=== PATIENT | male | born 1970 | race Caucasian/White ===

== ENCOUNTER → 2021-05-08 15:32 | Outpatient (CLI) | payer OTHER, SELFPAY ==
--- NOTE | 2021-05-08 | DI.RAD.S_ITS ---
PROCEDURE: XR T AND L SPINE 2 TO 3 VIEWS INDICATIONS: Wedge compression fracture of T11-T12 vertebra, subsequent e TECHNIQUE: 2 views acquired of the thoracolumbar spine. COMPARISON: None. FINDINGS: Bones: No acute fractures or dislocations. Mild chronic anterior wedging of T12. Minimal chronic anterior wedging of T8. Visualized inferior ribs appear intact. No suspicious bony lesions. Soft tissues: No suspicious soft tissue calcifications. IMPRESSION: Chronic anterior wedging of T8 and T12. No evidence acute bony abnormality of the thoracolumbar spine. If clinical suspicion and/or symptoms persist, further assessment with repeat plain films, or advanced imaging (e.g., CT, MRI, or bone scan) may be helpful for further assessment. Dictated by: Dario Malloy M.D. on 05/09/2021 at 12:04 Approved by: Dario Malloy M.D. on 05/09/2021 at 12:08
== END ==
PROVIDERS: Referring Provider Nurse Practitioner Adult Health; Visit Provider Nurse Practitioner Adult Health
DX: S22.080D Wedge compression fracture of T11-T12 vertebra, subsequent encounter for fracture with routine healing (principal)
CPT/HCPCS: 72082

== ENCOUNTER → 2021-06-12 13:29 | Outpatient (CLI) | payer OTHER, SELFPAY ==
--- NOTE | 2021-06-12 13:37 | DI.RAD.S_ITS ---
PROCEDURE: XR T AND L SPINE 2 TO 3 VIEWS INDICATIONS: Xray thoracolumbar flexion and extension TECHNIQUE: 2 views acquired of the thoracolumbar spine. COMPARISON: None. FINDINGS: Bones: No acute fractures or dislocations. Visualized inferior ribs appear intact. No suspicious bony lesions. Lumbar spine neurostimulator. Mild L1-L2, L2-L3, L3-L4, L4-L5 and L5-S1 degenerative disc disease. There is limited range of motion in the flexed and extended positions. No abnormal vertebral body motion identified in the flexed or extended positions. Soft tissues: No suspicious soft tissue calcifications. IMPRESSION: Multilevel degenerative disc disease. Limited flexion extension range of motion. No abnormal vertebral body translation in the flexed or extended positions. Dictated by: Lucrecia Calles MD, PhD on 06/12/2021 at 15:05 Approved by: Lucrecia Calles MD, PhD on 06/12/2021 at 15:06
== END ==
PROVIDERS: Referring Provider Physician Assistant Medical; Visit Provider Physician Assistant Medical
DX: S22.080D Wedge compression fracture of T11-T12 vertebra, subsequent encounter for fracture with routine healing (principal); M51.36 Other intervertebral disc degeneration, lumbar region; M51.37 Other intervertebral disc degeneration, lumbosacral region; Z96.82 Presence of neurostimulator
CPT/HCPCS: 72082

== ENCOUNTER 2024-06-20 01:40 | Emergency (ER) | payer OTHER, SELFPAY ==
[2024-06-20] VITALS (14 sets, daily range): BP systolic 118–148; BP diastolic 78–99; PULSE 73–100; RESP 16–20; TEMP 36.4; O2SAT 91–96; BMI 35.5
--- NOTE | 2024-06-20 02:33 | ED.SKABFB ---
HPI - Skin/Abscess/Foreign Bdy General Chief complaint: Skin/Abscess/Foreign Body Stated complaint: Rash all over Time Seen by Provider: 06/20/24 01:55 Source: patient Mode of arrival: Ambulatory Limitations: no limitations History of Present Illness HPI narrative: 53-year-old male complains of painful itchy skin rash yesterday. Has been on lamotrigine for anger management, had dosage increase from 50 mg twice daily to 100 mg 2 months ago. Was told that if he got any skin rashes to stop the medications and go to the emergency department as soon as possible. No oral lesions. No trouble breathing. No neck swelling or lip swelling or tongue swelling symptoms. No blistering of the skin. He has not tried any medications thus far. Related Data Previous Rx's Medication Instructions Recorded diphenhydramine HCl 25 mg capsule 50 mg (2 x 25 mg) PO QID #40 caps 06/20/24 (Benadryl) prednisone 20 mg tablet 40 mg (2 x 20 mg) PO DAILY 5 days 06/20/24 #10 tabs Patient History tobacco type: smokeless tobacco Exam Narrative Exam Narrative: GENERAL: Well-developed patient, in mild distress. HEAD: Atraumatic. Normocephalic. EYES: Pupils equal round and reactive. Extraocular motions intact. No scleral icterus. No injection or drainage. ENT: Nose without bleeding, purulent drainage. Throat without erythema, tonsillar hypertrophy or exudate. Airway patent. NECK: Trachea midline. Non tender CARDIOVASCULAR: Regular rate and rhythm without murmurs, gallops, or rubs. RESPIRATORY: Clear to auscultation. Breath sounds equal bilaterally. No wheezes, rales, or rhonchi. GASTROINTESTINAL: Abdomen soft, non-tender, nondistended. EXTREMITIES: No edema or joint tenderness. BACK: Nontender without deformity or crepitance. No flank tenderness. NEURO: AOx3. Motor functions grossly nonfocal SKIN: Maculopapular rash in large patches anterior and posterior trunk, upper extremities, lower extremities, non confluent. No petechiae. No purpura. No bullae. Not particularly urticarial and plaque nature. No obvious swelling to face or eyelids or lips or tongue. Initial Vital Signs Initial Vital Signs: Vital Signs Temperature 97.5 F L 06/20/24 01:51 Pulse Rate 100 H 06/20/24 01:51 Respiratory Rate 20 04/27/25 01:51 Blood Pressure 144/99 H 06/20/24 01:51 Pulse Oximetry 96 06/20/24 01:51 Oxygen Delivery Method Room Air 06/20/24 01:51 Course Orders Ordered: Discontinued Medications Diphenhydramine HCl (Diphenhydramine 50 Mg/Ml Vial) 50 mg IV NOW ONE Stop: 06/20/24 02:37 Last Admin: 06/20/24 02:57 Dose: 50 mg Documented By: SHAHAB Methylprednisolone (Methylprednisolone 125 Mg/2 Ml Vial) 125 mg IV NOW ONE Stop: 06/20/24 02:37 Last Admin: 06/20/24 02:57 Dose: 125 mg Documented By: SHAHAB Vital Signs Vital signs: Vital Signs - 8 hr 06/20/24 01:51 06/20/24 02:30 06/20/24 02:50 Temperature 97.5 F L Pulse Rate 100 H 92 H 89 Respiratory Rate 20 Blood Pressure 144/99 H Pulse Oximetry 96 93 93 Oxygen Delivery Method Room Air 06/20/24 02:50 06/20/24 03:00 06/20/24 03:01 Temperature Pulse Rate 92 H Respiratory Rate Blood Pressure 148/84 H 127/88 Pulse Oximetry 93 Oxygen Delivery Method 06/20/24 03:01 06/20/24 03:30 06/20/24 03:30 Temperature Pulse Rate 92 H 87 Respiratory Rate 18 Blood Pressure 123/88 Pulse Oximetry 93 92 Oxygen Delivery Method 06/20/24 04:00 06/20/24 04:00 06/20/24 04:30 Temperature Pulse Rate 89 Respiratory Rate Blood Pressure 129/88 130/89 Pulse Oximetry 93 Oxygen Delivery Method 06/20/24 04:30 06/20/24 05:00 06/20/24 05:00 Temperature Pulse Rate 73 77 Respiratory Rate 16 Blood Pressure 129/86 Pulse Oximetry 92 91 Oxygen Delivery Method Room Air 06/20/24 05:30 06/20/24 05:30 06/20/24 06:00 Temperature Pulse Rate 80 Respiratory Rate Blood Pressure 119/82 118/78 Pulse Oximetry 92 Oxygen Delivery Method 06/20/24 06:00 Temperature Pulse Rate 77 Respiratory Rate 18 Blood Pressure Pulse Oximetry 92 Oxygen Delivery Method MDM - Skin/Abscess/Foreign Bdy Lab Data 06/20/24 02:52 06/20/24 02:52 Labs: Lab Results 06/20/24 Range/Units 02:52 WBC 11.3 H (4.5-11.0) X10^3/uL RBC 5.04 (4.5-5.9) X10^6/uL Hgb 15.3 (13.5-17.5) g/dL Hct 45.4 (41-53) % MCV 90.2 (80-100) fL MCH 30.4 (26-34) PG MCHC 33.8 (30-36) % RDW 13.9 (11.6-14.8) % Plt Count 399 (150-400) X10^3/uL Neut % (Auto) 63.2 (50-75) % Lymph % (Auto) 26.7 (25-40) % [place] % (Auto) 7.8 (3-14) % Eos % (Auto) 1.7 L (2-4) % Baso % (Auto) 0.6 (0-2) % Neut # (Auto) 7200 H (2554-4907) /uL Lymph # (Auto) 3000 (6603-3582) /uL [place] # (Auto) 900 (0-900) /uL Eos # (Auto) 200 (0-450) /uL Baso # (Auto) 100 (0-100) /uL PT 11.6 (9.4-12.5) SECONDS INR 1.0 (0.9-1.3) Fibrinogen 420 (238-498) mg/dL Sodium 140 (137-145) mmol/L Potassium 3.7 (3.4-5.1) mmol/L Chloride 103 (98-107) mmol/L Carbon Dioxide 24 (22-32) mmol/L BUN 24 H (9-20) mg/dL Creatinine 0.94 (0.66-1.25) mg/dL Estimated GFR > 60 (>60) mL/min BUN/Creatinine Ratio 25.5 H (6-22) Glucose 129 H (70-99) mg/dL Calcium 10.0 (8.4-10.2) mg/dL Total Bilirubin 0.4 (0.2-1.3) mg/dL AST 30 (17-59) IU/L ALT 29 (<50) IU/L Alkaline Phosphatase 58 (38-126) U/L C-Reactive Protein < 0.5 (<1.0) mg/dL Total Protein 7.7 (6.3-8.2) g/dL Albumin 4.9 (3.5-5.0) g/dL Globulin 2.8 (1.7-4.1) g/dL Albumin/Globulin Ratio 1.8 (1.0-2.8) Urine Color Yellow Urine Appearance Clear Urine pH 6.0 (4.5-8.0) Ur Specific [place] >=1.030 H (1.000-1.035) Urine Protein Trace H (Negative) Urine Glucose (UA) Negative (Negative) g/dL Urine Ketones Negative (NEGATIVE) Urine Occult Blood 1+ H (Negative) Urine Nitrate Negative (Negative) Urine Bilirubin Negative (NEGATIVE) Urine Urobilinogen 0.2 (0.2) E.U./dL Ur Leukocyte Esterase Negative (NEGATIVE) Urine RBC 1-5/hpf (0-5/HPF) Urine WBC 0-1/hpf (0-5/HPF) Ur Squamous Epith Cells 0-1 /hpf (0-5/HPF) Urine Bacteria None seen (None) Urine Mucus 3+ H (Negative) Ur Culture Indicated? Cult not indicated Vol Urine Centrifuged 10ml (spun) MDM Narrative Medical decision making narrative: 53-year-old male with history of anger management issues, had been on lamotrigine titrated up for many months, 2 months ago was increased in dosage up to 100 mg by mouth twice daily. Now with itchy painful rash since yesterday, was told that he had had a itchy painful rash or unexplained rash needs to be seen right away as it could be dangerous if it is due to lamotrigine. No angioedema like symptoms. No bull eye. Afebrile, normotensive. No mucosal lesions obvious on examination. No conjunctival injection. Consider allergic reaction, possibly due to lamotrigine, consider DRESS syndrome, we will send screening labs. Consider dermatology consultation. Hepatic function, renal function, lytes normal. CRP not elevated. Photo sent, case discussed with [facility] Dr. Clement, who had very limited utility in her response, stating that her role was only to determine if there Andre John syndrome, which seemed unlikely, otherwise had no recommendations. Meanwhile, rash seemed to be having improvement, less intense pain, less intense itching, faded in appearance in some patches. We will discharge patient on oral prednisone and oral Benadryl regimen for the next few days. Patient advised to stopped the lamotrigine. Follow up with his mental health providers advised as well. Return precautions discussed. Discharged home. Discharge Plan Departure Patient Disposition: Home Clinical Impression: Skin rash Activity Restrictions/Additional Instructions: Skin rash that is painful and itchy. Possibly related to lamotrigine. Stop using the lamotrigine medication. IV steroid and IV antihistamine given. Take further steroids and antihistamines oral course. Recheck with your regular provider and your mental health provider this week. Return earlier to this/nearest emergency department for any change worsening symptoms or any concerns prior. Prescriptions: New prednisone 20 mg tablet 40 mg PO DAILY 5 Days Qty: 10 0RF diphenhydramine HCl [Benadryl] 25 mg capsule 50 mg PO QID Qty: 40 0RF Referrals: Miscellaneous,Doctor, [Primary Care Provider] - Stand Alone Forms: Patient Portal/API/Survey
[2024-06-20] MEDS: diphenhydrAMINE 50 MG/ML VIAL IV (02:57)
[2024-06-20] MEDS: methylPREDNISolone 125 MG/2 ML VIAL IV (02:57)
[2024-06-20 03:06] LABS: Add Manual Diff / Slide Review NO; Basophils Absolute Auto 100 /uL (0-100); Basophils Percent Auto 0.6 % (0-2); Eosinophils Absolute Auto 200 /uL (0-450); Eosinophils Percent Auto 1.7 % (2-4); Hematocrit 45.4 % (41-53); Hemoglobin 15.3 g/dL (13.5-17.5); Lymphocytes Absolute Auto 3000 /uL (1100-4500); Lymphocytes Percent Auto 26.7 % (25-40); Mean Corpuscular HGB Conc 33.8 % (30-36); Mean Corpuscular Hemoglobin 30.4 PG (26-34); Mean Corpuscular Volume 90.2 fL (80-100); Monocytes Absolute Auto 900 /uL (0-900); Monocytes Percent Auto 7.8 % (3-14); Neutrophils Absolute Auto 7200 /uL (1500-7000); Neutrophils Percent Auto 63.2 % (50-75); Platelet Count 399 X10^3/uL (150-400); Red Blood Cell Count 5.04 X10^6/uL (4.5-5.9); Red Cell Distribution Width 13.9 % (11.6-14.8); White Blood Cell Count 11.3 X10^3/uL (4.5-11.0)
[2024-06-20 03:13] LABS: Prothrombin Time 11.6 SECONDS (9.4-12.5)
[2024-06-20 03:27] LABS: Fibrinogen 420 mg/dL (238-498)
[2024-06-20 03:31] LABS: Alanine Aminotransferase 29 IU/L (<50); Albumin 4.9 g/dL (3.5-5.0); Albumin Globulin Ratio 1.8 (1.0-2.8); Alkaline Phosphatase 58 U/L (38-126); Aspartate Aminotransferase 30 IU/L (17-59); BUN Creatinine Ratio 25.5 (6-22); Bilirubin Total 0.4 mg/dL (0.2-1.3); Blood Urea Nitrogen 24 mg/dL (9-20); Carbon Dioxide 24 mmol/L (22-32); Chloride 103 mmol/L (98-107); Estimated Glomerular Filt Rate > 60 mL/min (>60); Globulin 2.8 g/dL (1.7-4.1); Glucose 129 mg/dL (70-99); HEMOLYSIS < 15 (0-50); Potassium 3.7 mmol/L (3.4-5.1); Sodium 140 mmol/L (137-145); Total Protein 7.7 g/dL (6.3-8.2)
[2024-06-20 03:36] LABS: Appearance Urine UA CLEAR; Bilirubin Urine UA NEGATIVE (NEGATIVE); Color Urine UA YELLOW; Glucose Urine UA NEGATIVE (Negative); Ketones Urine UA NEGATIVE (NEGATIVE); Leukocyte Esterase Urine UA NEGATIVE (NEGATIVE); Nitrite Urine UA NEGATIVE (Negative); Occult Blood Urine UA 1+ (Negative); Protein Urine UA TRACE (Negative); Specific Gravity Urine UA >=1.030 (1.000-1.035); Urobilinogen Urine UA 0.2 E.U./dL (0.2)
[2024-06-20 03:37] LABS: C-Reactive Protein Quant < 0.5 mg/dL (<1.0)
[2024-06-20 03:44] LABS: Urine Volume 10mL (spun)
[2024-06-20 03:45] LABS: RBC Urine 1-5/HPF (0-5/HPF); WBC Urine 0-1/HPF (0-5/HPF)
[2024-06-20 03:46] LABS: Bacteria Urine None Seen; Mucus Urine 3+ (Negative); Squamous Epithelial Cell Urine 0-1 /HPF (0-5/HPF)
[2024-06-20 03:47] LABS: Culture Indicated Urine Cult Not Indicated
--- NOTE | 2024-06-20 07:30 | PC.NURSE ---
Pt appears to be resting comfortably in bed. Equal chest rise and fall.
== END 2024-06-20 07:51 | disposition home or self-care (01) ==
PROVIDERS: Emergency Provider Emergency Medicine
DX: R21 Rash and other nonspecific skin eruption (principal)
CPT/HCPCS: 36415; 80053; 81001; 85025; 85384; 85610; 86140; 96374; 96375; 99284; J1200; J2919

== ENCOUNTER 2024-07-28 12:29 | Emergency (ER) | payer OTHER, SELFPAY ==
--- NOTE | 2024-07-28 12:32 | ED_ITS ---
HPI - Chest Pain General Chief Complaint: Chest Pain Stated Complaint: chest pain vertigo weakness sent by PCP Time Seen by Provider: 07/28/24 12:32 History of Present Illness HPI narrative: 53-year-old male with a past medical history of vertigo comes into the ED from home for evaluation multiple complaints, he states that several hours ago he started having vertiginous like symptoms, states that it was getting worse with motion turning his head, states that he also started developing a ?hollow feeling to his chest states that it is not an actual chest pain just feels like ?it is hollow. He states that he was on lamotrigine for anger management issues previously but had an allergic reaction to this and therefore is not taking it anymore. He denies any visual disturbances shortness breath fever chills abdominal pain or any other GI/ symptoms time. He states that moving turning his head does make his symptoms worse, has a associated nausea vomiting associated with the symptoms. Denies any falls no head strike no LOC not on any blood thinners. Related Data Previous Rx's ?Medication ?Instructions ?Recorded diphenhydramine HCl 25 mg capsule 50 mg (2 x 25 mg) PO QID #40 caps 06/20/24 (Benadryl) meclizine 25 mg chewable tablet 25 mg PO BID PRN dizzi ness 1 week 07/28/24 (Antivert) #14 tabs ondansetron 4 mg disintegrating 4 mg PO Q8H PRN nausea and 07/28/24 tablet vomiting 1 week #21 tabs Allergies Allergy/AdvReac Type Severity Reaction Status Date / Time gabapentin Allergy Verified 07/28/24 12:44 Penicillins Allergy Verified 07/28/24 12:44 Review of Systems Review of Systems Narrative: General: Denies fever, chills, weight loss HEENT: Denies headache, eye drainage, eye irritation, head trauma, sore throat, voice change Cardiovascular: Positive chest pain, denies palpitations, tachycardia Respiratory: Denies any shortness of breath, cough, wheeze, stridor GI/: Denies any abdominal pain, nausea, vomiting, diarrhea, bright red blood per rectum, melanotic stools, urinary frequency, urinary retention, dysuria, hematuria MSK: Denies any joint pain, muscle pains, swelling Skin: Denies any rashes, lesions, discoloration Neuro: Positive lightheadedness, dizziness Denies any headache, fainting, weakness Psych: Denies SI/HI Patient History Social History Smoking Status: Former smoker tobacco type: smokeless tobacco Exam Narrative Exam Narrative: General: Cooperative, well-developed, not in acute distress HEENT: Normocephalic, atraumatic, PERRLA, normal sclera, eyelids normal Neck: Active full range of motion, atraumatic Chest: Normal to inspection, negative crepitus, no overlying erythema ecchymosis Respiratory: Normal respiratory effort, not in acute respiratory distress, clear to auscultation bilaterally negative cough, wheeze, tachypnea, rhonchi, rales Cardiology: Regular rate rhythm negative gallop, murmur, rubs GI/: No tenderness to palpation, soft, non rigid, normal to inspection, exam deferred MSK: Full active range of motion in all 4 extremities, atraumatic, no tenderness to palpation of any bony prominences Skin: No rashes or lesions noted Neuro: NIH of 0, no focal deficits Alert awake oriented x3, moves all 4 extremities spontaneously, cranial nerves intact, able to answer all questions appropriately follows commands appropriately Psych: Cooperative, negative suicidal or homicidal ideations Initial Vital Signs Initial Vital Signs: Vital Signs Temperature 98.1 F 07/28/24 12:43 Pulse Rate 77 07/28/24 12:43 Respiratory Rate 18 07/28/24 12:43 Blood Pressure 143/98 H 07/28/24 12:43 Pulse Oximetry 96 07/28/24 12:43 Oxygen Delivery Method Room Air 07/28/24 12:43 Course Orders Ordered: ED Orders 07/28/24 12:32 XR chest 1V Stat EKG-12 Lead Stat 07/28/24 12:38 CT angio head and neck Stat CT head/brain wo con Stat 07/28/24 12:50 Complete Blood Count AUTO DIFF Stat Comprehensive Metabolic Panel Stat Lipase Stat MAG [Magnesium] Stat NT-proBNP (BNP-Adult 18+) Stat PTT Partial Thromboplastin Aris Stat Prothrombin Time INR Stat Troponin & CK Cardiac Panel Stat Discontinued Medications Diphenhydramine HCl (Diphenhydramine 50 Mg/Ml Vial) 25 mg IV NOW ONE Stop: 07/28/24 12:38 Last Admin: 07/28/24 13:04 Dose: 25 mg Documented By: Sodium Chloride (Normal Saline 0.9%) 1,000 mls @ 1,000 mls/hr IV BOLUS ONE Stop: 07/28/24 13:36 Last Admin: 07/28/24 13:05 Dose: 1,000 mls/hr Documented By: Metoclopramide HCl (Metoclopramide 10 Mg/2 Ml Inj) 10 mg IV NOW ONE Stop: 07/28/24 12:38 Last Admin: 07/28/24 13:04 Dose: 10 mg Documented By: Ondansetron HCl (Ondansetron 4 Mg/2 Ml Inj) 4 mg IV NOW ONE Stop: 07/28/24 12:38 Last Admin: 07/28/24 13:04 Dose: 4 mg Documented By: Vital Signs Vital signs: Vital Signs - 8 hr 07/28/24 12:43 Temperature 98.1 F Pulse Rate 77 Respiratory Rate 18 Blood Pressure 143/98 H Pulse Oximetry 96 Oxygen Delivery Method Room Air MDM - Chest Pain Differential Diagnosis Differential diagnosis: Likely atypical chest pain, st elevation myocardial infarction, costochondritis, chest pain and other (BPPV, CVA, electrolyte abnormality) Lab Data 07/28/24 12:50 07/28/24 12:50 Labs: Lab Results 07/28/24 Range/Units 12:50 WBC 15.9 H (4.5-11.0) X10^3/uL RBC 5.06 (4.5-5.9) X10^6/uL Hgb 15.5 (13.5-17.5) g/dL Hct 46.2 (41-53) % MCV 91.2 (80-100) fL MCH 30.7 (26-34) PG MCHC 33.6 (30-36) % RDW 14.3 (11.6-14.8) % Plt Count 390 (150-400) X10^3/uL Neut % (Auto) 90.4 H (50-75) % Lymph % (Auto) 6.1 L (25-40) % Moca % (Auto) 3.1 (3-14) % Eos % (Auto) 0.2 L (2-4) % Baso % (Auto) 0.2 (0-2) % Neut # (Auto) 30877 H (1474-4555) /uL Lymph # (Auto) 1000 L (6127-7025) /uL Moca # (Auto) 500 (0-900) /uL Eos # (Auto) 0 (0-450) /uL Baso # (Auto) 0 (0-100) /uL PT 11.9 (9.4-12.5) SECONDS INR 1.1 (0.9-1.3) APTT 36 (25.1-36.5) SECONDS Sodium 137 (137-145) mmol/L Potassium 4.1 (3.4-5.1) mmol/L Chloride 103 (98-107) mmol/L Carbon Dioxide 22 (22-32) mmol/L BUN 19 (9-20) mg/dL Creatinine 0.73 (0.66-1.25) mg/dL Estimated GFR > 60 (>60) mL/min BUN/Creatinine Ratio 26.0 H (6-22) Glucose 152 H (70-99) mg/dL Calcium 10.1 (8.4-10.2) mg/dL Magnesium 1.8 (1.6-2.3) mg/dL Total Bilirubin 0.6 (0.2-1.3) mg/dL AST 32 (17-59) IU/L ALT 37 (<50) IU/L Alkaline Phosphatase 62 (38-126) U/L Total Creatine Kinase 72 (55-170) U/L Troponin I < 0.012 (0.01-0.034) ng/mL NT-Pro-B Natriuret Pep < 20 (<125) pg/mL Total Protein 8.1 (6.3-8.2) g/dL Albumin 5.0 (3.5-5.0) g/dL Globulin 3.1 (1.7-4.1) g/dL Albumin/Globulin Ratio 1.6 (1.0-2.8) Lipase 107 (23-300) U/L Imaging Data Chest x-ray: Radiologist's Impression: [address] [address] XRay Report Signed Patient: Mario Car MR#: [id number] : 1970 Acct:[id number] Age/Sex: 53 / M Date of Service: 07/28/24 Loc: ED Accession Number: [id number] Procedure: XR chest 1V Ordering Provider: Baluyot,Familia D.O. PROCEDURE: XR CHEST 1V INDICATIONS: chest pain TECHNIQUE: One view of the chest was acquired. COMPARISON: [facility], CT, CT HEAD/BRAIN WO CON, 07/28/2024, 12:50. [facility], CT, CT ANGIO HEAD AND NECK, 07/28/2024, 12:50. FINDINGS: Surgical changes and devices: None. Lungs and pleura: An incomplete inspiratory result is noted, causing a crowded appearance to the lung markings. No focal infiltrates are seen. No pneumothorax or significant pleural effusions are seen. Mediastinum: Mediastinal contours appear normal. Heart size is normal. Bones and chest wall: No suspicious bony lesions. Age-appropriate bony degenerative changes are seen. Overlying soft tissues appear unremarkable. IMPRESSION: Low lung volumes, without an acute abnormality seen by plain film. CT scan - head: Radiologist's Impression: [place] [address] CT Scan Report Signed Patient: Mario Car MR#: [id number] : 1970 Acct:[id number] Age/Sex: 53 / M Date of Service: 07/28/24 Loc: ED Accession Number: [id number] Procedure: CT head/brain wo con Ordering Provider: Familia Hewitt D.O. PROCEDURE: CT HEAD/BRAIN WO CON INDICATIONS: dizzy TECHNIQUE: Noncontrast 4.5 mm thick angled axial sections acquired from the foramen magnum to the vertex, with coronal and sagittal reformats. For radiation dose reduction, the following was used: automated exposure control, adjustment of mA and/or kV according to patient size. COMPARISON: [facility], CT, CT HEAD WITHOUT CONTRAST, 04/03/2021, 12:18. [facility], CR, XR CHEST 1V, 07/28/2024, 12:46. [facility], CT, CT ANGIO HEAD AND NECK, 07/28/2024, 12:50. FINDINGS: Image quality: Diagnostic. CSF spaces: Basal cisterns are patent. No extra-axial fluid collections. Ventricles are normal in size and shape. Brain: No midline shift. No intracranial mass effect or hemorrhage. [place]- white matter interface is normal. Skull and face: Calvarium and visualized facial bones are intact, without suspicious lesions. Sinuses: Visualized sinuses and mastoids are clear. IMPRESSION: No imaging explanation is found for this patient's presenting symptoms. To the limits of this noncontrast study, no findings of intracranial masses or mass effect can be seen. CTA - brain/neck: Radiologist's Impression: [address] [address] [address] Scan Report Signed Patient: Mario Car MR#: [id number] : 1970 Acct:[id number] Age/Sex: 53 / M Date of Service: 07/28/24 Loc: ED Accession Number: [id number] Procedure: CT angio head and neck Ordering Provider: Familia Hewitt D.O. PROCEDURE: CT ANGIO HEAD AND NECK INDICATIONS: dizzy TECHNIQUE: After the administration of intravenous contrast, 1 mm thick sections acquired from the aortic arch through the [place] of Haq. 3-dimensional iokzkmc-rmbzwhtnk-lvdsvvjjso (MIP) and/or volume rendering reformats were acquired of the central intracranial vasculature and neck separately. For radiation dose reduction, the following was used: automated exposure control, adjustment of mA and/or kV according to patient size. COMPARISON: [facility], CT, CT HEAD WITHOUT CONTRAST, 04/03/2021, 12:18. [facility], CR, XR CHEST 1V, 07/28/2024, 12:46. [facility], CT, CT HEAD/BRAIN WO CON, 07/28/2024, 12:50. FINDINGS: Image quality: Limited by bolus timing, with venous contamination. There is streak artifact seen through the level of the shoulders. Cerebral CT Angiogram: Internal carotid arteries: No acute findings. Asymmetry can be seen of the A1 segments, with the right-side hypoplastic. The anterior cerebral artery system is otherwise within normal limits. No occlusion. No aneurysm. Anterior cerebral arteries: Unremarkable. No significant stenosis. No occlusion. No aneurysm. Middle cerebral arteries: Unremarkable. No significant stenosis. No occlusion. No aneurysm. Posterior cerebral arteries: Unremarkable. No significant stenosis. No occlusion. No aneurysm. Basilar artery: Unremarkable. No significant stenosis. No occlusion. No aneurysm. Vertebral arteries: Unremarkable as visualized. Dural venous sinuses: Unremarkable given phase of enhancement. Other: Arterial phase appearance of the brain parenchyma is unremarkable. Neck CT Angiogram: Internal carotid arteries: Unremarkable. No significant stenosis. No dissection or occlusion. Common carotid arteries: Unremarkable. No significant stenosis. No dissection or occlusion. External carotid arteries: Unremarkable. No occlusion. Vertebral arteries: Unremarkable. No significant stenosis. No dissection or occlusion. Aortic Arch and Mediastinum: Partially visualized aortic arch unremarkable without evidence of aneurysm. Origins of the great vessels unremarkable. Other: Arterial phase soft tissues of the neck and chest are unremarkable. Mild cervical spine degenerative change is seen. IMPRESSION: No imaging explanation is found for this patient's presenting symptoms. No significant intracranial arterial abnormality is seen. No significant abnormality is seen within the arteries of the neck. ECG Data Interpretation: EKG interpreted ED physician sinus 76 beats per minute QTC [address] changes no STEMI MDM Narrative Medical decision making narrative: 53-year-old male with a past medical history of vertigo comes into the emergency department for multiple complaints, states that he has been having vertigo earlier today, states it is worse than normal states it normally resolves after a few hours but this has persisted, symptoms are worse with turning or moving his head, no head strike no LOC. Also complains of a ?hollow feeling in his chest. He states that he was previously on lamotrigine for anger management issues but had an allergic reaction to this and therefore was taken off. He currently is not complaining of any shortness of breath visual disturbances or any other symptoms at this time. Does endorse nausea vomiting secondary to his symptoms. Patient had lab work imaging EKG performed here in the emergency department. EKG was nonischemic in nature. Chest x-ray without any acute cardiopulmonary abnormality, CT scan of the head without any acute findings, CTA angio head and neck without any acute findings, patient had resolution of his symptoms after administration of Reglan Benadryl here, patient was also given meclizine prior to discharge. Patient heart score of 2, patient was able to stand ambulate unassisted here in the emergency department no focal deficits, patient was instructed to follow up with the PCP, zinc skimmer and Cardiology in an outpatient setting, he verbalized understanding of this and agrees to being discharged home with outpatient follow up Discharge Plan Departure Patient Disposition: Home Clinical Impression: Chest pain, Vertigo Instructions: DI for Vertigo, DI for Chest Pain Activity Restrictions/Additional Instructions: Please follow up with ENT, PCP and Cardiology in outpatient setting Please read the discharge instructions sheet carefully and bring all papers to all doctor follow-up visits, as it may contain information that your doctor may want to see. Disease processes change and evolve, if your symptoms worsen or if you develop any new symptoms that are concerning to you please return for evaluation. Your evaluation today does not show any evidence of any life- threatening/serious illnesses requiring admission to the hospital or surgery. Please follow-up with your doctor for re-evaluation in approximately 1 day. Seek immediate medical attention for any worrisome symptoms. *If you do not have a primary care provider please contact the [facility] Resource line at [phone]. They will ask some questions about your medical history and help get you set up with a doctor in the community. Prescriptions: New meclizine [Antivert] 25 mg tablet,chewable 25 mg PO BID PRN (Reason: dizziness) 7 Days Qty: 14 0RF ondansetron 4 mg tablet,disintegrating 4 mg PO Q8H PRN (Reason: nausea and vomiting) 7 Days Qty: 21 0RF No Action diphenhydramine HCl [Benadryl] 25 mg capsule 50 mg PO QID Qty: 40 0RF Referrals: Nate Nicholson MD [Physician, Ear, Nose, Throat] Jeffery Singleton MD [Physician, Cardiology] Miscellaneous,MD Rosa [Primary Care Provider, Medical] Stand Alone Forms: Patient Portal/API
--- NOTE | 2024-07-28 12:32 | EKG_ITS ---
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
--- NOTE | 2024-07-28 12:38 | DI.CT.S_ITS ---
PROCEDURE: CT HEAD/BRAIN WO CON INDICATIONS: dizzy TECHNIQUE: Noncontrast 4.5 mm thick angled axial sections acquired from the foramen magnum to the vertex, with coronal and sagittal reformats. For radiation dose reduction, the following was used: automated exposure control, adjustment of mA and/or kV according to patient size. COMPARISON: [facility], CT, CT HEAD WITHOUT CONTRAST, 04/03/2021, 12:18. [facility], CR, XR CHEST 1V, 07/28/2024, 12:46. [facility], CT, CT ANGIO HEAD AND NECK, 07/28/2024, 12:50. FINDINGS: Image quality: Diagnostic. CSF spaces: Basal cisterns are patent. No extra-axial fluid collections. Ventricles are normal in size and shape. Brain: No midline shift. No intracranial mass effect or hemorrhage. [place]- white matter interface is normal. Skull and face: Calvarium and visualized facial bones are intact, without suspicious lesions. Sinuses: Visualized sinuses and mastoids are clear. IMPRESSION: No imaging explanation is found for this patient's presenting symptoms. To the limits of this noncontrast study, no findings of intracranial masses or mass effect can be seen. Dictated by: Alvino Manriquez M.D. on 07/28/2024 at 12:06 Approved by: Alvino Manriquez M.D. on 07/28/2024 at 12:07
--- NOTE | 2024-07-28 12:38 | DI.CT.S_ITS ---
PROCEDURE: CT ANGIO HEAD AND NECK INDICATIONS: dizzy TECHNIQUE: After the administration of intravenous contrast, 1 mm thick sections acquired from the aortic arch through the [place] of [place]q. 3-dimensional uizmuml-sfsihhiyr-lvaiwfkbrt (MIP) and/or volume rendering reformats were acquired of the central intracranial vasculature and neck separately. For radiation dose reduction, the following was used: automated exposure control, adjustment of mA and/or kV according to patient size. COMPARISON: [facility], CT, CT HEAD WITHOUT CONTRAST, 04/03/2021, 12:18. [facility], CR, XR CHEST 1V, 07/28/2024, 12:46. [facility], CT, CT HEAD/BRAIN WO CON, 07/28/2024, 12:50. FINDINGS: Image quality: Limited by bolus timing, with venous contamination. There is streak artifact seen through the level of the shoulders. Cerebral CT Angiogram: Internal carotid arteries: No acute findings. Asymmetry can be seen of the A1 segments, with the right-side hypoplastic. The anterior cerebral artery system is otherwise within normal limits. No occlusion. No aneurysm. Anterior cerebral arteries: Unremarkable. No significant stenosis. No occlusion. No aneurysm. Middle cerebral arteries: Unremarkable. No significant stenosis. No occlusion. No aneurysm. Posterior cerebral arteries: Unremarkable. No significant stenosis. No occlusion. No aneurysm. Basilar artery: Unremarkable. No significant stenosis. No occlusion. No aneurysm. Vertebral arteries: Unremarkable as visualized. Dural venous sinuses: Unremarkable given phase of enhancement. Other: Arterial phase appearance of the brain parenchyma is unremarkable. Neck CT Angiogram: Internal carotid arteries: Unremarkable. No significant stenosis. No dissection or occlusion. Common carotid arteries: Unremarkable. No significant stenosis. No dissection or occlusion. External carotid arteries: Unremarkable. No occlusion. Vertebral arteries: Unremarkable. No significant stenosis. No dissection or occlusion. Aortic Arch and Mediastinum: Partially visualized aortic arch unremarkable without evidence of aneurysm. Origins of the great vessels unremarkable. Other: Arterial phase soft tissues of the neck and chest are unremarkable. Mild cervical spine degenerative change is seen. IMPRESSION: No imaging explanation is found for this patient's presenting symptoms. No significant intracranial arterial abnormality is seen. No significant abnormality is seen within the arteries of the neck. Additional findings: Zwhqhj-[id number] developmental anomalies Mild cervical spine degenerative change Any quantitative measurements of stenosis were performed using NASCET criteria. Dictated by: Alvino Manriquez M.D. on 07/28/2024 at 12:08 Approved by: Alvino Manriquez M.D. on 07/28/2024 at 12:10
[2024-07-28 12:43] VITALS: BP 143/98; PULSE 77; RESP 18; TEMP 36.7; O2SAT 96
--- NOTE | 2024-07-28 12:52 | PC.NURSE ---
PT in pain distress. Holding left side of chest. MD aware.
[2024-07-28 12:55] LABS: Add Manual Diff / Slide Review NO; Basophils Absolute Auto 0 /uL (0-100); Basophils Percent Auto 0.2 % (0-2); Eosinophils Absolute Auto 0 /uL (0-450); Eosinophils Percent Auto 0.2 % (2-4); Hematocrit 46.2 % (41-53); Hemoglobin 15.5 g/dL (13.5-17.5); Lymphocytes Absolute Auto 1000 /uL (1100-4500); Lymphocytes Percent Auto 6.1 % (25-40); Mean Corpuscular HGB Conc 33.6 % (30-36); Mean Corpuscular Hemoglobin 30.7 PG (26-34); Mean Corpuscular Volume 91.2 fL (80-100); Monocytes Absolute Auto 500 /uL (0-900); Monocytes Percent Auto 3.1 % (3-14); Neutrophils Absolute Auto 14400 /uL (1500-7000); Neutrophils Percent Auto 90.4 % (50-75); Platelet Count 390 X10^3/uL (150-400); Red Blood Cell Count 5.06 X10^6/uL (4.5-5.9); Red Cell Distribution Width 14.3 % (11.6-14.8); White Blood Cell Count 15.9 X10^3/uL (4.5-11.0)
[2024-07-28 13:03] VITALS: PULSE 90; RESP 31; O2SAT 96
[2024-07-28 13:03] LABS: INR 1.1 (0.9-1.3); Prothrombin Time 11.9 SECONDS (9.4-12.5)
[2024-07-28 13:04] VITALS: BP 152/86; PULSE 90; RESP 61; O2SAT 95
[2024-07-28] MEDS: diphenhydrAMINE 50 MG/ML VIAL 25 MG IV (13:04)
[2024-07-28] MEDS: METOCLOPRAMIDE 10 MG/2 ML INJ IV (13:04)
[2024-07-28] MEDS: ONDANSETRON 4 MG/2 ML INJ IV (13:04)
[2024-07-28 13:05] LABS: PTT Partial Thromboplastin Tim 36 SECONDS (25.1-36.5)
[2024-07-28] MEDS: SODIUM CHLORIDE 0.9% 1,000 ML 1000 ML IV (13:05)
[2024-07-28 13:07] LABS: Alanine Aminotransferase 37 IU/L (<50); Albumin Globulin Ratio 1.6 (1.0-2.8); Alkaline Phosphatase 62 U/L (38-126); Aspartate Aminotransferase 32 IU/L (17-59); Bilirubin Total 0.6 mg/dL (0.2-1.3); Blood Urea Nitrogen 19 mg/dL (9-20); Calcium 10.1 mg/dL (8.4-10.2); Carbon Dioxide 22 mmol/L (22-32); Chloride 103 mmol/L (98-107); Creatine Kinase 72 U/L (55-170); Estimated Glomerular Filt Rate > 60 mL/min (>60); Globulin 3.1 g/dL (1.7-4.1); Glucose 152 mg/dL (70-99); HEMOLYSIS 16 (0-50); Lipase 107 U/L (23-300); Magnesium 1.8 mg/dL (1.6-2.3); Potassium 4.1 mmol/L (3.4-5.1); Sodium 137 mmol/L (137-145); Total Protein 8.1 g/dL (6.3-8.2)
[2024-07-28 13:17] LABS: NT-proBNP (BNP-Adult 18+) < 20 pg/mL (<125)
[2024-07-28 13:19] LABS: Troponin I < 0.012 ng/mL (0.01-0.034)
[2024-07-28 13:30] VITALS: BP 143/68; PULSE 86; RESP 16; O2SAT 93
[2024-07-28] MEDS: MECLIZINE HCL 12.5 MG TABLET 25 MG PO (14:03)
== END 2024-07-28 14:09 | disposition home or self-care (01) ==
PROVIDERS: Emergency Provider Student in an Organized Health Care Education/Training Program
DX: R07.9 Chest pain, unspecified (principal); R42 Dizziness and giddiness
CPT/HCPCS: 36415; 70450; 70496; 70498; 71045; 80053; 82550; 83690; 83735; 83880; 84484; 85025; 85610; 85730; 93005; 96361; 96374; 96375; 99284; J1200; J2405; J2765